=== PATIENT | male | born 1985 | race Caucasian/White ===

== ENCOUNTER 2017-02-26 16:04 | Inpatient (IN) | payer MEDICAID ==
[~2017-02-26] VITALS: Ht 172.7 cm; Wt 103.6 kg
[2017-02-26 18:53] VITALS: BP 141/87
[2017-02-26] MEDS ORDERED: ZOLPIDEM TARTRATE 10 MG TABLET PO PRN (19:15)
[2017-02-26 19:40] VITALS: BP 137/94
[2017-02-26] MEDS ORDERED: OLAN5TAB2 PO (19:41)
[2017-02-26] MEDS ORDERED: PARO20TA24 PO (19:41)
[2017-02-26] MEDS ORDERED: IBUPROFEN 400 MG TABLET PO PRN (20:00)
[2017-02-26] MEDS ORDERED: ACETAMINOPHEN 325 MG TABLET PO PRN (20:00)
[2017-02-26] MEDS ORDERED: PNEUMOCOCCAL VACCINE POLYVALENT 0.5 ML VIAL [PPSV23] IM ONE (20:15)
[2017-02-26] MEDS: OLANZapine 10 MG TABLET PO SCH (20:49)
[2017-02-27 16:00] VITALS: BP 131/82
[2017-02-27] MEDS: LORazepam 2 MG TABLET PO PRN (16:34)
[2017-02-27] MEDS: HALOPERIDOL 5 MG TABLET PO PRN (16:34)
[2017-02-27] MEDS: OLANZapine 10 MG TABLET PO SCH (20:18)
[2017-02-28 06:44] VITALS: BP 123/83
[2017-02-28 08:47] VITALS: BP 124/76
[2017-02-28] MEDS: LORazepam 2 MG TABLET PO PRN (11:26)
[2017-02-28] MEDS: HALOPERIDOL 5 MG TABLET PO PRN (11:26)
[2017-02-28 16:16] VITALS: BP 113/80
[2017-02-28] MEDS: OLANZapine 10 MG TABLET PO SCH (20:48)
[2017-03-01 05:57] VITALS: BP 110/75
[2017-03-01 08:12] VITALS: BP 135/75
[2017-03-01] MEDS: LORazepam 2 MG TABLET PO PRN (08:21)
[2017-03-01] MEDS: HALOPERIDOL 5 MG TABLET PO PRN (08:21)
[2017-03-01 16:00] VITALS: BP 126/74
[2017-03-01] MEDS: OLANZapine 10 MG TABLET PO SCH (20:52)
[2017-03-02 06:32] VITALS: BP 125/70
[2017-03-02 08:00] VITALS: BP 121/82
[2017-03-02] MEDS: LORazepam 2 MG TABLET PO PRN (09:36)
[2017-03-02] MEDS ORDERED: OLAN10TA3 PO (15:20)
== END 2017-03-02 16:32 | disposition home or self-care (01) | DRG 750 ==
LOC: B3A 19:04 → EDSTATUS 19:08
DX: F20.0 Paranoid schizophrenia (principal); G47.00 Insomnia, unspecified; Z53.29 Procedure and treatment not carried out because of patient's decision for other reasons; R00.0 Tachycardia, unspecified; Z28.21 Immunization not carried out because of patient refusal
CPT/HCPCS: 87081